=== PATIENT | male | born 2000 | race Caucasian/White ===

== ENCOUNTER 2025-01-27 00:58 | Emergency (ER) | payer OTHER, SELFPAY ==
--- NOTE | 2025-01-27 01:03 | ED.SEIZURE ---
HPI - Seizure General Chief Complaint: Seizure Stated Complaint: seizure Time Seen by Provider: 01/27/25 01:01 History of Present Illness HPI Narrative: Patient is a 24-year-old male history of seizures presenting today with seizure. Patient reports that he went to bed thinks he had a seizure. EMS reports that he is quite confused they have seen him before and this is a similar presentation to his postictal state. Patient believes that he may have missed a dose of his Keppra. He denies any pain or injury. He does have multiple seizures month. He has poorly controlled seizure history. He was here back in October for breakthrough seizure at that time as well. Now supposed to be taking Vimpat and Keppra. Related Data Home Medications ?Medication ?Instructions ?Recorded ?Confirmed aripiprazole 30 mg tablet 30 mg PO DAILY 10/28/24 10/28/24 escitalopram oxalate 20 mg tablet 20 mg PO DAILY 10/28/24 10/28/24 levetiracetam 1,000 mg tablet 2,000 mg PO BID 10/28/24 10/28/24 meloxicam 7.5 mg tablet 7.5 mg PO DAILY 10/28/24 10/28/24 mirtazapine 30 mg tablet 30 mg PO DAILY 10/28/24 10/28/24 Allergies Allergy/AdvReac Type Severity Reaction Status Date / Time No Known Drug Allergies Allergy Verified 10/29/24 06:17 Patient History Social History Smoking Status: Current every day smoker Exam Initial Vital Signs Initial Vital Signs: Vital Signs Temperature 98.1 F 01/27/25 01:07 Pulse Rate 81 01/27/25 01:07 Respiratory Rate 20 01/27/25 01:07 Blood Pressure 109/55 L 01/27/25 01:07 Pulse Oximetry 98 01/27/25 01:07 Oxygen Delivery Method Room Air 01/27/25 01:07 GENERAL: Alert well-appearing 24-year-old male HEENT: Head atraumatic,EOMI, pupils reactive, face symmetric, no tongue injury CARDIOVASCULAR: Regular rate and rhythm without murmurs, rubs or gallops. RESPIRATORY: Breath sounds equal bilaterally, no wheezes rales or rhonchi. ABDOMEN: Soft, nontender. Normoactive bowel sounds all 4 quadrants. No guarding or rebound. EXTREMITIES: Normal range of motion, no clubbing or edema. Neurovascularly intact NEUROLOGICAL: Alert and oriented x4.Normal gait and speech. Cranial nerves II through XII grossly intact. Moving all extremities SKIN: Warm, dry, no laceration, no petechiae, no rashes or lesions. Course Orders Ordered: ED Orders 01/27/25 01:04 UA Complete [Urinalysis and Microscopic] Stat Urine Drug Screen, Rapid Stat 01/27/25 01:20 CBC Auto Diff [Complete Blood Count AUTO DIFF] Stat CMP [Comprehensive Metabolic Panel] Stat ETOH [Ethanol (ETOH)] Stat Discontinued Medications Lorazepam (Lorazepam 2 Mg/Ml Inj) 1 mg IV NOW ONE Stop: 01/27/25 01:42 Vital Signs Vital signs: Vital Signs - 8 hr 01/27/25 01:07 Temperature 98.1 F Pulse Rate 81 Respiratory Rate 20 Blood Pressure 109/55 L Pulse Oximetry 98 Oxygen Delivery Method Room Air MDM - Seizure Lab Data 01/27/25 01:20 01/27/25 01:20 Labs: Lab Results 01/27/25 Range/Units 01:20 WBC 7.3 (4.5-11.0) X10^3/uL RBC 4.98 (4.5-5.9) X10^6/uL Hgb 14.6 (13.5-17.5) g/dL Hct 42.0 (41-53) % MCV 84.3 (80-100) fL MCH 29.4 (26-34) PG MCHC 34.9 (30-36) % RDW 13.3 (11.6-14.8) % Plt Count 215 (150-400) X10^3/uL Neut % (Auto) 56.3 (50-75) % Lymph % (Auto) 36.2 (25-40) % [place] % (Auto) 7.1 (3-14) % Eos % (Auto) 0.2 L (2-4) % Baso % (Auto) 0.2 (0-2) % Neut # (Auto) 4100 (2706-0836) /uL Lymph # (Auto) 2600 (1519-4039) /uL [place] # (Auto) 500 (0-900) /uL Eos # (Auto) 0 (0-450) /uL Baso # (Auto) 0 (0-100) /uL Sodium 141 (137-145) mmol/L Potassium 4.1 (3.4-5.1) mmol/L Chloride 103 (98-107) mmol/L Carbon Dioxide 27 (22-32) mmol/L BUN 14 (9-20) mg/dL Creatinine 0.80 (0.66-1.25) mg/dL Estimated GFR > 60 (>60) mL/min BUN/Creatinine Ratio 17.5 (6-22) Glucose 102 H (70-99) mg/dL Calcium 9.4 (8.4-10.2) mg/dL Total Bilirubin 0.7 (0.2-1.3) mg/dL AST 19 (17-59) IU/L ALT 12 (<50) IU/L Alkaline Phosphatase 71 (38-126) U/L Total Protein 7.3 (6.3-8.2) g/dL Albumin 4.8 (3.5-5.0) g/dL Globulin 2.5 (1.7-4.1) g/dL Albumin/Globulin Ratio 1.9 (1.0-2.8) Ethyl Alcohol < 10 (<10) mg/dL MDM Narrative Medical decision making narrative: Patient 24-year-old male history of seizures presenting today with seizure. He is wake alert responsive. Mildly confused but cooperative. Possible he missed a dose of seizure medication. Records have been reviewed he was seen evaluated here in October for the same. At that time he had a head CT blood work and neurology was consulted. 0145 patient getting agitated wanting to leave he is awake alert he knows where he is he is in the hospital he thinks he had a seizure. He Tried calling his mom. He has a steady gait no evidence of intoxication. Blood work still pending. I tried calling his mother and left a voicemail. Patient getting very agitated ultimately left through the ambulance [place] he pulled out his own IV. EMS reports that he has a postictal period where he is wandering and minimally responsive, he is now very responsive, but not agreeable to stay. Reports that he just lives 2 blocks away in his leaving. Blood work not yet back. Blood work has been reviewed No leukocytosis no anemia No electrolyte abnormality no EMELYN glucose 102 Alcohol level is negative Discharge Plan Departure Patient Disposition: Elopement Clinical Impression: Generalized seizure Prescriptions: No Action escitalopram oxalate 20 mg tablet 20 mg PO DAILY aripiprazole 30 mg tablet 30 mg PO DAILY levetiracetam 1,000 mg tablet 2,000 mg PO BID mirtazapine 30 mg tablet 30 mg PO DAILY meloxicam 7.5 mg tablet 7.5 mg PO DAILY
[2025-01-27 01:07] VITALS: BP 109/55; PULSE 81; PULSE 95; RESP 20; RESP 27; TEMP 36.7; O2SAT 98; BMI 22.2
[2025-01-27 01:30] VITALS: PULSE 90; RESP 22; O2SAT 98
[2025-01-27 01:39] LABS: Add Manual Diff / Slide Review NO; Hematocrit 42.0 % (41-53); Hemoglobin 14.6 g/dL (13.5-17.5); Lymphocytes Absolute Auto 2600 /uL (1100-4500); Mean Corpuscular HGB Conc 34.9 % (30-36); Mean Corpuscular Hemoglobin 29.4 PG (26-34); Mean Corpuscular Volume 84.3 fL (80-100); Platelet Count 215 X10^3/uL (150-400)
--- NOTE | 2025-01-27 01:45 | PC.NURSE ---
Pt came out of room stating I am leaving. Primary nurse informed him he can't leave until IV was out. Pt went back into room, then came out a few minutes later stating I am out of here Staff tried to convince patient to stay but eloped out of ambulance bay doors. IV found in room, tip intact.
[2025-01-27 02:13] LABS: Alanine Aminotransferase 12 IU/L (<50); Albumin 4.8 g/dL (3.5-5.0); Albumin Globulin Ratio 1.9 (1.0-2.8); Alkaline Phosphatase 71 U/L (38-126); Blood Urea Nitrogen 14 mg/dL (9-20); Calcium 9.4 mg/dL (8.4-10.2); Carbon Dioxide 27 mmol/L (22-32); Chloride 103 mmol/L (98-107); Estimated Glomerular Filt Rate > 60 mL/min (>60); Ethanol (ETOH) < 10 mg/dL (<10); Globulin 2.5 g/dL (1.7-4.1); Glucose 102 mg/dL (70-99); HEMOLYSIS < 15 (0-50); Potassium 4.1 mmol/L (3.4-5.1); Sodium 141 mmol/L (137-145); Total Protein 7.3 g/dL (6.3-8.2)
== END 2025-01-27 01:45 | disposition left against medical advice (07) ==
PROVIDERS: Emergency Provider Emergency Medicine
DX: G40.409 Other generalized epilepsy and epileptic syndromes, not intractable, without status epilepticus (principal)
CPT/HCPCS: 36415; 80053; 80320; 85025; 99283

== ENCOUNTER 2025-02-09 07:13 | Emergency (ER) | payer OTHER, SELFPAY ==
[2025-02-09] VITALS (29 sets, daily range): BP systolic 102–133; BP diastolic 51–76; PULSE 62–106; RESP 15–24; TEMP 36.4; O2SAT 95–100; BMI 19.5
[2025-02-09] MEDS: KETAMINE 500 MG/5 ML INJ 60 MG IV (07:31)
--- NOTE | 2025-02-09 07:34 | ED.SEIZURE ---
HPI - Seizure General Chief Complaint: Seizure Stated Complaint: Seziure Time Seen by Provider: 02/09/25 07:34 History of Present Illness HPI Narrative: Patient seen immediately on arrival 07 Related Data Home Medications ?Medication ?Instructions ?Recorded ?Confirmed aripiprazole 30 mg tablet 30 mg PO DAILY 10/28/24 10/28/24 escitalopram oxalate 20 mg tablet 20 mg PO DAILY 10/28/24 10/28/24 levetiracetam 1,000 mg tablet 2,000 mg PO BID 10/28/24 10/28/24 meloxicam 7.5 mg tablet 7.5 mg PO DAILY 10/28/24 10/28/24 mirtazapine 30 mg tablet 30 mg PO DAILY 10/28/24 10/28/24 Allergies Allergy/AdvReac Type Severity Reaction Status Date / Time No Known Drug Allergies Allergy Verified 10/29/24 06:17 Patient History tobacco type: vaping Exam Initial Vital Signs Initial Vital Signs: Vital Signs Temperature 97.6 F 02/09/25 07:43 Pulse Rate 106 H 02/09/25 07:43 Respiratory Rate 15 02/09/25 07:43 Blood Pressure 102/51 L 02/09/25 07:43 Pulse Oximetry 95 02/09/25 07:43 Oxygen Delivery Method Room Air 02/09/25 07:43 Course Course Course Narrative: 1025 updated mother with current workup, secondary performed, awaiting neurology consult 1101 discussed case with transfer center Orders Ordered: ED Orders 02/09/25 07:37 Urine Drug Screen, Rapid Stat 02/09/25 07:43 CBC Auto Diff [Complete Blood Count AUTO DIFF] Stat CMP [Comprehensive Metabolic Panel] Stat ETOH [Ethanol (ETOH)] Stat Levetiracetam Keppra Stat 02/09/25 08:01 CT head/brain wo con Stat 02/09/25 08:40 EKG-12 Lead Stat 02/09/25 10:23 Consult to EQUIP MAINT ENG - [employer] Observer Stat XR elbow LT min 3V Stat Ketorolac Tromethamine (Ketorolac 30 Mg/Ml Vial) 15 mg IV NOW ONE Stop: 02/09/25 10:25 Lorazepam (Lorazepam 2 Mg/Ml Inj) 0 mg IV CIWAPRN PRN; Protocol PRN Reason: Alcohol Withdrawal Lorazepam (Lorazepam 1 Mg Tablet) 0 mg PO CIWAPRN PRN; Protocol PRN Reason: Alcohol Withdrawal Multivitamins (Multivitamin 1 Tablet) 1 tab PO DAILY PATRICIA Discontinued Medications Acetaminophen (Acetaminophen 325 Mg Tablet) 650 mg PO Q6H ONE Stop: 02/09/25 09:08 Last Admin: 02/09/25 09:11 Dose: 650 mg Documented By: TERRA Levetiracetam 1,000 mg/ Sodium (Chloride) 110 mls @ 440 mls/hr IV NOW ONE Stop: 02/09/25 07:39 Last Admin: 02/09/25 09:15 Dose: Not Given Documented By: TERRA Levetiracetam 2,000 mg/ Sodium (Chloride) 120 mls @ 480 mls/hr IV NOW ONE Stop: 02/09/25 07:47 Last Infusion: 02/09/25 08:20 Dose: Infused Documented By: Admin: 02/09/25 08:03 Dose: 480 mls/hr Documented By: TERRA Propofol (Diprivan) 1,000 mg in 100 mls @ 1.8 mls/hr IV STAT PATRICIA; Protocol Ketamine HCl (Ketamine 500 Mg/5 Ml Inj) 300 mg IM NOW ONE Stop: 02/09/25 07:27 Ketamine HCl (Ketamine 500 Mg/5 Ml Inj) 60 mg IV NOW ONE Stop: 02/09/25 07:30 Last Admin: 02/09/25 07:31 Dose: 60 mg Documented By: DEREJE Vital Signs Vital signs: Vital Signs - 8 hr 02/09/25 07:43 02/09/25 08:09 02/09/25 08:10 Temperature 97.6 F Pulse Rate 106 H 64 62 Respiratory Rate 15 20 19 Blood Pressure 102/51 L Pulse Oximetry 95 100 100 Oxygen Delivery Method Room Air 02/09/25 08:10 02/09/25 08:25 02/09/25 08:25 Temperature Pulse Rate 68 Respiratory Rate 19 Blood Pressure 118/63 133/74 Pulse Oximetry 100 Oxygen Delivery Method 02/09/25 08:30 02/09/25 08:30 02/09/25 09:00 Temperature Pulse Rate 62 91 H Respiratory Rate 22 23 Blood Pressure 128/58 L Pulse Oximetry 100 100 Oxygen Delivery Method 02/09/25 09:14 02/09/25 09:14 02/09/25 09:20 Temperature Pulse Rate 74 75 Respiratory Rate 19 17 Blood Pressure 114/56 L Pulse Oximetry 98 99 Oxygen Delivery Method 02/09/25 09:20 02/09/25 09:30 02/09/25 09:30 Temperature Pulse Rate 102 H Respiratory Rate 20 Blood Pressure 109/51 L 119/61 Pulse Oximetry 100 Oxygen Delivery Method MDM - Seizure Lab Data 02/09/25 07:43 02/09/25 07:43 Labs: Lab Results 02/09/25 Range/Units 07:43 WBC 5.7 (4.5-11.0) X10^3/uL RBC 4.88 (4.5-5.9) X10^6/uL Hgb 14.0 (13.5-17.5) g/dL Hct 41.0 (41-53) % MCV 84.0 (80-100) fL MCH 28.7 (26-34) PG MCHC 34.2 (30-36) % RDW 13.2 (11.6-14.8) % Plt Count 225 (150-400) X10^3/uL Neut % (Auto) 60.1 (50-75) % Lymph % (Auto) 31.9 (25-40) % [place] % (Auto) 7.4 (3-14) % Eos % (Auto) 0.3 L (2-4) % Baso % (Auto) 0.3 (0-2) % Neut # (Auto) 3400 (9946-2660) /uL Lymph # (Auto) 1800 (7368-0857) /uL [place] # (Auto) 400 (0-900) /uL Eos # (Auto) 0 (0-450) /uL Baso # (Auto) 0 (0-100) /uL Sodium 140 (137-145) mmol/L Potassium 3.3 L (3.4-5.1) mmol/L Chloride 105 (98-107) mmol/L Carbon Dioxide 22 (22-32) mmol/L BUN 12 (9-20) mg/dL Creatinine 0.80 (0.66-1.25) mg/dL Estimated GFR > 60 (>60) mL/min BUN/Creatinine Ratio 15.0 (6-22) Glucose 132 H (70-99) mg/dL Calcium 9.0 (8.4-10.2) mg/dL Total Bilirubin 0.8 (0.2-1.3) mg/dL AST 26 (17-59) IU/L ALT 19 (<50) IU/L Alkaline Phosphatase 64 (38-126) U/L Total Protein 7.1 (6.3-8.2) g/dL Albumin 4.7 (3.5-5.0) g/dL Globulin 2.4 (1.7-4.1) g/dL Albumin/Globulin Ratio 2.0 (1.0-2.8) Ethyl Alcohol < 10 (<10) mg/dL Discharge Plan Departure Prescriptions: No Action escitalopram oxalate 20 mg tablet 20 mg PO DAILY aripiprazole 30 mg tablet 30 mg PO DAILY levetiracetam 1,000 mg tablet 2,000 mg PO BID mirtazapine 30 mg tablet 30 mg PO DAILY meloxicam 7.5 mg tablet 7.5 mg PO DAILY
--- NOTE | 2025-02-09 07:59 | PC.NURSE ---
This RN called vonda vasquez [id number].
[2025-02-09 08:01] LABS: Add Manual Diff / Slide Review NO; Hematocrit 41.0 % (41-53); Hemoglobin 14.0 g/dL (13.5-17.5); Lymphocytes Absolute Auto 1800 /uL (1100-4500); Mean Corpuscular HGB Conc 34.2 % (30-36); Mean Corpuscular Hemoglobin 28.7 PG (26-34); Mean Corpuscular Volume 84.0 fL (80-100); Platelet Count 225 X10^3/uL (150-400)
--- NOTE | 2025-02-09 08:01 | DI.CT.S_ITS ---
PROCEDURE: CT HEAD/BRAIN WO CON INDICATIONS: multiple seizures, report of head trauma TECHNIQUE: Noncontrast 4.5 mm thick angled axial sections acquired from the foramen magnum to the vertex, with coronal and sagittal reformats. For radiation dose reduction, the following was used: automated exposure control, adjustment of mA and/or kV according to patient size. COMPARISON: [facility], CT, CT HEAD/BRAIN WO CON, 10/28/2024, 19:21. FINDINGS: Image quality: Diagnostic. CSF spaces: Basal cisterns are patent. No extra-axial fluid collections. Ventricles are normal in size and shape. Brain: No midline shift. No intracranial mass effect or hemorrhage. [place]- white matter interface is normal. Skull and face: Calvarium and visualized facial bones are intact, without suspicious lesions. Sinuses: Visualized sinuses and mastoids are clear. IMPRESSION: No acute intracranial pathology. Dictated by: Asad Rogel M.D. on 02/09/2025 at 9:14 Approved by: Asad Rogel M.D. on 02/09/2025 at 9:15
[2025-02-09 08:02] LABS: Alanine Aminotransferase 19 IU/L (<50); Albumin 4.7 g/dL (3.5-5.0); Albumin Globulin Ratio 2.0 (1.0-2.8); Alkaline Phosphatase 64 U/L (38-126); Blood Urea Nitrogen 12 mg/dL (9-20); Calcium 9.0 mg/dL (8.4-10.2); Carbon Dioxide 22 mmol/L (22-32); Chloride 105 mmol/L (98-107); Estimated Glomerular Filt Rate > 60 mL/min (>60); Ethanol (ETOH) < 10 mg/dL (<10); Globulin 2.4 g/dL (1.7-4.1); Glucose 132 mg/dL (70-99); HEMOLYSIS < 15 (0-50); Potassium 3.3 mmol/L (3.4-5.1); Sodium 140 mmol/L (137-145); Total Protein 7.1 g/dL (6.3-8.2)
--- NOTE | 2025-02-09 08:40 | EKG_ITS ---
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
[2025-02-09] MEDS: ACETAMINOPHEN 325 MG TABLET 650 MG PO (09:11)
--- NOTE | 2025-02-09 09:16 | RT ---
Called to ER6 for pt seizing, upon arrival pt being restrained and airway patent, on room air with no distress noted. Bag mask unit with suction at [facility] functional
--- NOTE | 2025-02-09 10:23 | DI.RAD.S_ITS ---
PROCEDURE: XR ELBOW LT MIN 3V INDICATIONS: seizure, pain TECHNIQUE: 3 views of the elbow were acquired. COMPARISON: None. FINDINGS: Bones: No fractures or dislocations. No suspicious bony lesions. Soft tissues: No elbow joint effusion. No suspicious soft tissue calcifications. Peripheral IV in the antecubital fossa. IMPRESSION: No acute bony abnormality or significant joint effusion. Dictated by: Asad Rogel M.D. on 02/09/2025 at 10:39 Approved by: Asad Rogel M.D. on 02/09/2025 at 10:40
[2025-02-09] MEDS: KETOROLAC 30 MG/ML VIAL 15 MG IV ×2 (10:27→11:24)
--- NOTE | 2025-02-09 11:20 | PC.NURSE ---
pt becoming increasingly agitated self removed own iv, asking for real pain meds, provider made aware and provider states he does not have injuries that would need stronger pain meds for. verbal order recd for additional 15mg iv toradol
[2025-02-09 12:01] LABS: UR Morphine/Opiate cutoff 300 Negative (Negative); Ur Specific Gravity Normal (Normal); Urine MDMA Negative (Negative); Urine Methamphetamines Negative (Negative); Urine Tetrahydrocannabinol Positive (Negative); Urine Tricyclic Antidepressant Negative (Negative)
--- NOTE | 2025-02-09 13:14 | PC.NURSE ---
pt a/ox4 continues to remove spo2 probe from finger. rn and tech have explained several times to keep probe on finger. inconsistent vital signs due to pt removing probe after rn or tech leaves the room.
--- NOTE | 2025-02-09 13:20 | PC.NURSE ---
no further seizure activity noted
--- NOTE | 2025-02-09 13:21 | PC.NURSE ---
pt up in room pacing has self removed all of vs monitors at this time. this rn signing out report and care to ani at this time for rn lunch break.
--- NOTE | 2025-02-09 13:34 | CM.SWNOTE ---
ED POWER PLANT OPERATOR Note Patient is 24 y/o male who presents to ED via EMS postictal after two reported seizures. It is reported that patient was combative upon arrival. Patient has hx of two prior similar ED presentations in the last several months. Patient sees providers and Neurologist at [facility], [facility]. POWER PLANT OPERATOR receives consult due to concern for patient's housing issues and concern for managing needs at home. POWER PLANT OPERATOR enters room to meet with patient and patient's mother. Patient presents as A/Ox4, coherent. Patient presents with some agitation, patient's mother presents as tearful given complex medical and living situation. It is reported that patient is currently residing in a garage on family's property but the house is under construction. POWER PLANT OPERATOR asks about RV living situation that was discussed at previous ED presentation, it is reported that the RV was not an option for patient and mother has concerns for patient's ability to live alone. Patient states he takes rx as prescribed, it is reported that patient was supposed to have a neurology appt at [facility] yesterday but it was cancelled without their knowledge. POWER PLANT OPERATOR recommends following up with neurology. It is reported that patient has applied for disability several times and has been denied, but patient has ABD tripathi program services through [facility] and Food stamps. Patient reports concern for pending charges and upcoming court dates and states he is on probation and would not go into details regarding the felony charges, it is reported that an incident occurred after patient had a seizure. Patient denies HI and SI, but makes statements of hopelessness stating that I'm just going to go when POWER PLANT OPERATOR asks for clarification patient states he will not specify. Patient and patient's mother endorse that they are safe at home but they need more assistance as no one is helpful at home. Mother endorses that she lost her job and does not have an income at this time. It is reported that patient previously lived with a roommate but patient states that he took advantage of patient and was not a good roommate or a good influence for patient. Patient makes a vague statement that he is in a [employer] gang and makes gang signs with his hands, patient's mother denies that he is in a gang. POWER PLANT OPERATOR discusses LTC Medicaid and HCS services, patient and mother fill out LTC Medicaid application, POWER PLANT OPERATOR completes HCS application and submits both applications to [facility] via fax. POWER PLANT OPERATOR calls [facility] and leaves regarding patient. Patient and mother deny other needs from POWER PLANT OPERATOR and keep asking for a home, POWER PLANT OPERATOR provides patient and mother with lists of housing and basic needs resources. Patient is medically clear for discharge after consult with neurology and it is recommended that patient follow up with the epilepsy clinic at with advanced epileptologist. Patient and mother to d/c upon medical clearance, [facility] to f/u with patient regarding LTC Medicaid referrals, patient to f/u with outpatient providers. Leigha Antonio, MANAGER PERSONAL
--- NOTE | 2025-02-09 20:17 | ED.SEIZURE ---
HPI - Seizure General Chief Complaint: Seizure Stated Complaint: Seziure Time Seen by Provider: 02/09/25 07:34 Source: EMS Mode of arrival: EMS Limitations: altered mental status Related Data Home Medications ?Medication ?Instructions ?Recorded ?Confirmed aripiprazole 30 mg tablet 30 mg PO DAILY 10/28/24 10/28/24 escitalopram oxalate 20 mg tablet 20 mg PO DAILY 10/28/24 10/28/24 levetiracetam 1,000 mg tablet 2,000 mg PO BID 10/28/24 10/28/24 meloxicam 7.5 mg tablet 7.5 mg PO DAILY 10/28/24 10/28/24 mirtazapine 30 mg tablet 30 mg PO DAILY 10/28/24 10/28/24 Previous Rx's ?Medication ?Instructions ?Recorded lacosamide 200 mg tablet 200 mg PO BID #60 tabs 02/09/25 Allergies Allergy/AdvReac Type Severity Reaction Status Date / Time No Known Drug Allergies Allergy Verified 10/29/24 06:17 Patient History tobacco type: vaping Exam Initial Vital Signs Initial Vital Signs: Vital Signs Temperature 97.6 F 02/09/25 07:43 Pulse Rate 106 H 02/09/25 07:43 Respiratory Rate 15 02/09/25 07:43 Blood Pressure 102/51 L 02/09/25 07:43 Pulse Oximetry 95 02/09/25 07:43 Oxygen Delivery Method Room Air 02/09/25 07:43 Course Orders Ordered: Discontinued Medications Acetaminophen (Acetaminophen 325 Mg Tablet) 650 mg PO Q6H ONE Stop: 02/09/25 09:08 Last Admin: 02/09/25 09:11 Dose: 650 mg Documented By: TERRA Levetiracetam 1,000 mg/ Sodium (Chloride) 110 mls @ 440 mls/hr IV NOW ONE Stop: 02/09/25 07:39 Last Admin: 02/09/25 09:15 Dose: Not Given Documented By: TERRA Levetiracetam 2,000 mg/ Sodium (Chloride) 120 mls @ 480 mls/hr IV NOW ONE Stop: 02/09/25 07:47 Last Infusion: 02/09/25 08:20 Dose: Infused Documented By: Admin: 02/09/25 08:03 Dose: 480 mls/hr Documented By: TERRA Propofol (Diprivan) 1,000 mg in 100 mls @ 1.8 mls/hr IV STAT PATRICIA; Protocol Ketamine HCl (Ketamine 500 Mg/5 Ml Inj) 300 mg IM NOW ONE Stop: 02/09/25 07:27 Ketamine HCl (Ketamine 500 Mg/5 Ml Inj) 60 mg IV NOW ONE Stop: 02/09/25 07:30 Last Admin: 02/09/25 07:31 Dose: 60 mg Documented By: RB Ketorolac Tromethamine (Ketorolac 30 Mg/Ml Vial) 15 mg IV NOW ONE Stop: 02/09/25 10:25 Last Admin: 02/09/25 10:27 Dose: 15 mg Documented By: SBF Ketorolac Tromethamine (Ketorolac 30 Mg/Ml Vial) 15 mg IV NOW ONE Stop: 02/09/25 11:20 Last Admin: 02/09/25 11:24 Dose: 15 mg Documented By: SBF Lorazepam (Lorazepam 2 Mg/Ml Inj) 0 mg IV CIWAPRN PRN; Protocol PRN Reason: Alcohol Withdrawal Lorazepam (Lorazepam 1 Mg Tablet) 0 mg PO CIWAPRN PRN; Protocol PRN Reason: Alcohol Withdrawal Multivitamins (Multivitamin 1 Tablet) 1 tab PO DAILY PATRICIA Last Admin: 02/09/25 13:23 Dose: Not Given Documented By: SBF Vital Signs Vital signs: Vital Signs - 8 hr 02/09/25 12:30 02/09/25 13:00 02/09/25 13:23 Pulse Rate 82 90 Respiratory Rate 18 18 Blood Pressure 123/67 Pulse Oximetry 100 MDM - Seizure Lab Data 02/09/25 07:43 02/09/25 07:43 Labs: Lab Results 02/09/25 02/09/25 Range/Units 07:43 11:39 WBC 5.7 (4.5-11.0) X10^3/uL RBC 4.88 (4.5-5.9) X10^6/uL Hgb 14.0 (13.5-17.5) g/dL Hct 41.0 (41-53) % MCV 84.0 (80-100) fL MCH 28.7 (26-34) PG MCHC 34.2 (30-36) % RDW 13.2 (11.6-14.8) % Plt Count 225 (150-400) X10^3/uL Neut % (Auto) 60.1 (50-75) % Lymph % (Auto) 31.9 (25-40) % [place] % (Auto) 7.4 (3-14) % Eos % (Auto) 0.3 L (2-4) % Baso % (Auto) 0.3 (0-2) % Neut # (Auto) 3400 (0165-3148) /uL Lymph # (Auto) 1800 (2920-3646) /uL [place] # (Auto) 400 (0-900) /uL Eos # (Auto) 0 (0-450) /uL Baso # (Auto) 0 (0-100) /uL Sodium 140 (137-145) mmol/L Potassium 3.3 L (3.4-5.1) mmol/L Chloride 105 (98-107) mmol/L Carbon Dioxide 22 (22-32) mmol/L BUN 12 (9-20) mg/dL Creatinine 0.80 (0.66-1.25) mg/dL Estimated GFR > 60 (>60) mL/min BUN/Creatinine Ratio 15.0 (6-22) Glucose 132 H (70-99) mg/dL Calcium 9.0 (8.4-10.2) mg/dL Total Bilirubin 0.8 (0.2-1.3) mg/dL AST 26 (17-59) IU/L ALT 19 (<50) IU/L Alkaline Phosphatase 64 (38-126) U/L Total Protein 7.1 (6.3-8.2) g/dL Albumin 4.7 (3.5-5.0) g/dL Globulin 2.4 (1.7-4.1) g/dL Albumin/Globulin Ratio 2.0 (1.0-2.8) U Opiates 300ng/mL cut Negative (Negative) Ur Oxycodone Screen Negative (Negative) Urine Methadone Screen Negative (Negative) Ur Barbiturates Screen Negative (Negative) U Tricyclic Antidepress Negative (Negative) Ur Phencyclidine Scrn Negative (Negative) Ur Amphetamines Screen Negative (Negative) U Methamphetamines Scrn Negative (Negative) Ur MDMA Scrn (Ecstasy) Negative (Negative) U Benzodiazepines Scrn Negative (Negative) Urine Cocaine Screen Negative (Negative) U Marijuana (THC) Screen Positive H (Negative) Urine pH Normal (Normal) Urine Specific [place] Normal (Normal) Ethyl Alcohol < 10 (<10) mg/dL Ur Creatinine Normal (Normal) Discharge Plan Departure Patient Disposition: Home Clinical Impression: Seizure Instructions: DI for Seizure Disorder -- Adult Activity Restrictions/Additional Instructions: You were seen emergency department for seizures. In the ER you were given a loading dose of Keppra. Labs to include blood counts electrolytes and had scan was negative for any abnormalities. I discussed her case with Neurology at [facility] who recommended referral to the epilepsy clinic with advanced with an advanced epileptologist. Looking back in the electronic medical record it appears that the previous neurologist had recommended 200 mg of lacosamide, then 100 mg b.i.d. thereafter. You have been given a prescription for this and a referral has been placed for you. I additionally in the ER, health social work professor was involved to assist with placement/home health. Prescriptions: New lacosamide 200 mg tablet 200 mg PO BID Qty: 60 0RF No Action escitalopram oxalate 20 mg tablet 20 mg PO DAILY aripiprazole 30 mg tablet 30 mg PO DAILY levetiracetam 1,000 mg tablet 2,000 mg PO BID mirtazapine 30 mg tablet 30 mg PO DAILY meloxicam 7.5 mg tablet 7.5 mg PO DAILY Referrals: [facility] [Other] Referral Note: We are unable to give you a referral directly to this specialists and recommend that you follow-up with your primary care provider and request that Sal is referred to an advanced epileptologist. Stand Alone Forms: Patient Portal/API
[2025-02-13 14:12] LABS: Levetiracetam Keppra 52.8 ug/mL (10.0-40.0)
== END 2025-02-09 13:44 | disposition home or self-care (01) ==
PROVIDERS: Emergency Provider Student in an Organized Health Care Education/Training Program
DX: R56.9 Unspecified convulsions (principal); R00.0 Tachycardia, unspecified
CPT/HCPCS: 70450; 73080; 80053; 80177; 80305; 80320; 85025; 93005; 96365; 96375; 96376; 99284; J1885; J1953; J7050

== ENCOUNTER 2025-02-18 08:21 | Emergency (ER) | payer OTHER, SELFPAY ==
[2025-02-18] VITALS (13 sets, daily range): BP systolic 104–120; BP diastolic 51–60; PULSE 72–101; RESP 16–27; TEMP 36.6; O2SAT 94–100; BMI 21.6
--- NOTE | 2025-02-18 08:37 | ED_ITS ---
HPI - Seizure General Chief Complaint: Seizure Stated Complaint: Seizure Time Seen by Provider: 02/18/25 08:37 History of Present Illness HPI Narrative: This is a 24-year-old white male with a history of seizure burden by EMS with 2 seizures today. Upon arrival patient is postictal no further history is available. Patient was given 10 mg of IV midazolam by the paramedics Related Data Home Medications ?Medication ?Instructions ?Recorded ?Confirmed aripiprazole 30 mg tablet 30 mg PO DAILY 10/28/2410/14 escitalopram oxalate 20 mg tablet 20 mg PO DAILY 10/2810/28/24 levetiracetam 1,000 mg tablet 2,000 mg PO BID 10/28/24 10/28/24 meloxicam 7.5 mg tablet 7.5 mg PO DAILY 10/28/24 mirtazapine 30 mg tablet 30 mg PO DAILY 10/28/2410/14 Previous Rx's ?Medication ?Instructions ?Recorded lacosamide 200 mg tablet 200 mg PO BID #60 tabs 02/09 Allergies Allergy/AdvReac Type Severity Reaction Status Date / Time No Known Drug Allergies Allergy Verified 10/29/24 06:17 Patient History tobacco type: vaping Exam Initial Vital Signs Initial Vital Signs: Vital Signs Pulse Rate 101 H 02/18/25 08:33 Respiratory Rate 25 H 02/18/25 08:33 Pulse Oximetry 94 02/18/25 08:33 HENKS Head: normocephalic and atraumatic Ears: external ears normal and TM's normal bilaterally Nose: external nose normal and No nasal discharge Face and sinus: sinuses nontender, face symmetric, no sinus tenderness and No dry mucous membranes Mouth: oral mucosae normal and moist mucous membranes Teeth and gingiva: dentition normal Throat: tonsils normal and uvula midline Eyes Eyelids: eyelids normal Conjunctivae: conjunctivae normal Sclera: sclerae normal Pupils: PERRL EOM: EOM intact bilaterally Neck Neck: normal visual inspection, trachea midline, No lymphadenopathy, No midline deformity and No JVD Lymphatic: No lymphedema Chest Chest: normal inspection of the chest Resp Effort & Inspection: normal respiratory effort, able to speak in complete sentences, no respiratory distress and no use of accessory muscles Auscultation: clear to auscultation bilaterally, no rales, no rhonchi and no wheezes Cardio Rate: regular rate Rhythm: regular rhythm Heart Sounds: no click, no gallops, no murmurs and no rubs Pulses: normal peripheral pulses GI Inspection: non-distended Palpation: soft, no hepatosplenomegaly, No guarding, No pulsatile mass and No tender Auscultation: normal bowel sounds Back/Spine/Pelvis Back: No CVA tenderness Cervical Spine: cervical ROM normal and No pain with cervical ROM Thoracic/Lumbar Spine: thoracic and lumbar spine normal to inspection Skin General: no rashes or lesions noted, No jaundice and No petechiae Neuro General: not alert, not awake, not oriented x3 and no focal motor deficits Extrem General: full ROM, no clubbing, cyanosis or edema, no pedal edema and no calf tenderness Psych Appearance: well kempt Thought Content: normal and suicidality Course Orders Ordered: ED Orders 02/18/25 08:33 Urinalysis and Microscopic Stat Urine Drug Screen, Rapid Stat 02/18/25 08:34 Complete Blood Count AUTO DIFF Stat Comprehensive Metabolic Panel Stat Creatine Kinase Stat Ethanol (ETOH) Stat Lactate (Lactic Acid) Stat EKG-12 Lead Stat Discontinued Medications Levetiracetam 1,000 mg/ Sodium (Chloride) 110 mls @ 440 mls/hr IV NOW ONE Stop: 02/18/25 08:36 Last Infusion: 02/18/25 09:14 Dose: Infused Documented By: Admin: 02/18/25 08:49 Dose: 440 mls/hr Documented By: RA Lorazepam (Lorazepam 2 Mg/Ml Inj) 2 mg IV NOW ONE Stop: 02/18/25 10:15 Last Admin: 02/18/25 10:24 Dose: 2 mg Documented By: ALEKS Vital Signs Vital signs: Vital Signs - 8 hr 02/18/25 08:33 02/18/25 08:34 02/18/25 08:34 Temperature Pulse Rate 101 H 100 H Respiratory Rate 25 H 26 H Blood Pressure 108/52 L Blood Pressure [Left Arm] Pulse Oximetry 94 94 Oxygen Delivery Method 02/18/25 08:35 02/18/25 08:35 02/18/25 08:36 Temperature Pulse Rate 100 H 101 H Respiratory Rate 25 H 18 Blood Pressure 104/53 L Blood Pressure [Left Arm] 104/53 L Pulse Oximetry 94 98 Oxygen Delivery Method Room Air 02/18/25 08:36 02/18/25 08:42 02/18/25 08:48 Temperature 97.9 F Pulse Rate 101 H 100 H Respiratory Rate 18 16 Blood Pressure 104/53 L 104/53 L 106/51 L Blood Pressure [Left Arm] Pulse Oximetry 98 99 Oxygen Delivery Method Room Air 02/18/25 08:48 02/18/25 09:00 02/18/25 09:00 Temperature Pulse Rate 98 H 91 H Respiratory Rate 25 H 26 H Blood Pressure 111/56 L Blood Pressure [Left Arm] Pulse Oximetry 95 96 Oxygen Delivery Method 02/18/25 09:15 02/18/25 09:15 02/18/25 09:30 Temperature Pulse Rate 87 72 Respiratory Rate 27 H 18 Blood Pressure 116/55 L Blood Pressure [Left Arm] Pulse Oximetry 96 97 Oxygen Delivery Method 02/18/25 09:30 02/18/25 09:45 02/18/25 09:45 Temperature Pulse Rate 73 Respiratory Rate 21 Blood Pressure 120/60 120/58 L Blood Pressure [Left Arm] Pulse Oximetry 97 Oxygen Delivery Method 02/18/25 10:00 02/18/25 10:00 02/18/25 10:30 Temperature Pulse Rate 77 86 Respiratory Rate 24 Blood Pressure 120/56 L Blood Pressure [Left Arm] Pulse Oximetry 98 100 Oxygen Delivery Method 02/18/25 11:09 Temperature Pulse Rate 80 Respiratory Rate 18 Blood Pressure Blood Pressure [Left Arm] Pulse Oximetry 97 Oxygen Delivery Method MDM - Seizure Lab Data 02/18/25 08:34 02/18/25 08:34 Labs: Lab Results 02/18/25 02/18/25 Range/Units 08:25 08:34 WBC 7.0 (4.5-11.0) X10^3/uL RBC 5.00 (4.5-5.9) X10^6/uL Hgb 14.6 (13.5-17.5) g/dL Hct 42.6 (41-53) % MCV 85.3 (80-100) fL MCH 29.1 (26-34) PG MCHC 34.2 (30-36) % RDW 13.5 (11.6-14.8) % Plt Count 249 (150-400) X10^3/uL Neut % (Auto) 57.7 (50-75) % Lymph % (Auto) 34.3 (25-40) % Dickinson % (Auto) 7.2 (3-14) % Eos % (Auto) 0.4 L (2-4) % Baso % (Auto) 0.4 (0-2) % Neut # (Auto) 4000 (9601-6762) /uL Lymph # (Auto) 2400 (6227-6404) /uL Dickinson # (Auto) 500 (0-900) /uL Eos # (Auto) 0 (0-450) /uL Baso # (Auto) 0 (0-100) /uL Sodium 142 (137-145) mmol/L Potassium 3.7 (3.4-5.1) mmol/L Chloride 104 (98-107) mmol/L Carbon Dioxide 20 L (22-32) mmol/L BUN 12 (9-20) mg/dL Creatinine 0.80 (0.66-1.25) mg/dL Estimated GFR > 60 (>60) mL/min BUN/Creatinine Ratio 15.0 (6-22) Glucose 108 H (70-99) mg/dL POC Whole Bld Glucose 110 H (70-99) mg/dL Lactate 8.0 H* (0.7-2.1) mmol/L Calcium 9.5 (8.4-10.2) mg/dL Total Bilirubin 0.4 (0.2-1.3) mg/dL AST 28 (17-59) IU/L ALT 22 (<50) IU/L Alkaline Phosphatase 67 (38-126) U/L Total Creatine Kinase 129 (55-170) U/L Total Protein 7.5 (6.3-8.2) g/dL Albumin 4.9 (3.5-5.0) g/dL Globulin 2.6 (1.7-4.1) g/dL Albumin/Globulin Ratio 1.9 (1.0-2.8) Ethyl Alcohol < 10 (<10) mg/dL [facility] Narrative Medical decision making narrative: The patient had 12 lead EKG reveals sinus rhythm 99 beats per minute normal axis RSR prime no acute ischemic changes patient had a CBC within normals chemistry within normal limits lactic acid was 8.0 alcohol was negative the emergency department with patient arrived he was in a postictal state he became agitated and was given IV Ativan. Patient was also given a g of IV Keppra. Patient was observed to he returned to a GCS of 15. Patient was also able to ambulate without any disturbance at this point the patient will be discharged home. Differential diagnosis is noncompliance with medication recurrent seizure Discharge Plan Departure Patient Disposition: Home Clinical Impression: Seizure Instructions: DI for Seizure Disorder -- Adult Prescriptions: No Action escitalopram oxalate 20 mg tablet 20 mg PO DAILY aripiprazole 30 mg tablet 30 mg PO DAILY levetiracetam 1,000 mg tablet 2,000 mg PO BID mirtazapine 30 mg tablet 30 mg PO DAILY meloxicam 7.5 mg tablet 7.5 mg PO DAILY lacosamide 200 mg tablet 200 mg PO BID Qty: 60 0RF Stand Alone Forms: Patient Portal/API
[2025-02-18 08:43] LABS: Add Manual Diff / Slide Review NO; Hematocrit 42.6 % (41-53); Hemoglobin 14.6 g/dL (13.5-17.5); Lymphocytes Absolute Auto 2400 /uL (1100-4500); Mean Corpuscular HGB Conc 34.2 % (30-36); Mean Corpuscular Hemoglobin 29.1 PG (26-34); Mean Corpuscular Volume 85.3 fL (80-100); Platelet Count 249 X10^3/uL (150-400)
--- NOTE | 2025-02-18 08:45 | EKG_ITS ---
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
[2025-02-18 08:56] LABS: Alanine Aminotransferase 22 IU/L (<50); Albumin 4.9 g/dL (3.5-5.0); Albumin Globulin Ratio 1.9 (1.0-2.8); Alkaline Phosphatase 67 U/L (38-126); Blood Urea Nitrogen 12 mg/dL (9-20); Calcium 9.5 mg/dL (8.4-10.2); Carbon Dioxide 20 mmol/L (22-32); Chloride 104 mmol/L (98-107); Creatine Kinase 129 U/L (55-170); Estimated Glomerular Filt Rate > 60 mL/min (>60); Ethanol (ETOH) < 10 mg/dL (<10); Globulin 2.6 g/dL (1.7-4.1); Glucose 108 mg/dL (70-99); HEMOLYSIS < 15 (0-50); Potassium 3.7 mmol/L (3.4-5.1); Sodium 142 mmol/L (137-145); Total Protein 7.5 g/dL (6.3-8.2)
[2025-02-18 08:57] LABS: Lactate (Lactic Acid) 8.0 mmol/L (0.7-2.1)
--- NOTE | 2025-02-18 09:48 | PC.NURSE ---
Mother at the bedside.
[2025-02-18 10:15] LABS: Reflexed Lactate in 2 Hours Y
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
--- NOTE | 2025-02-18 11:10 | PC.NURSE ---
Pt ambulates with steady gait. Called mom for ride home. D/C per physician.
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
== END 2025-02-18 11:25 | disposition home or self-care (01) ==
PROVIDERS: Emergency Provider Emergency Medicine
DX: R56.9 Unspecified convulsions (principal)
CPT/HCPCS: 36415; 80053; 80320; 82550; 82962; 83605; 85025; 93005; 94760; 96365; 96375; 99284; J1953; J2060; J7050